=== PATIENT | male | born 1990 | race Caucasian/White ===

== ENCOUNTER 2018-06-05 17:34 | Emergency (ER) | payer BC, MEDICAID ==
[~2018-06-05] VITALS: Ht 170.2 cm; Wt 68.0 kg
[2018-06-05 17:37] VITALS: BP_SYST 148
[2018-06-05] MEDS ORDERED: AMOXICILLIN 500 MG CAPSULE PO ONE (20:30)
[2018-06-05] MEDS ORDERED: LEVOFLOXACIN 500 MG TABLET PO ONE (20:30)
[2018-06-05 21:05] VITALS: BP_SYST 136
== END 2018-06-05 21:05 | disposition home or self-care (01) ==
LOC: SED 17:34
DX: J18.8 Other pneumonia, unspecified organism (principal); J45.909 Unspecified asthma, uncomplicated; R03.0 Elevated blood-pressure reading, without diagnosis of hypertension; Z88.1 Allergy status to other antibiotic agents; Z88.8 Allergy status to other drugs, medicaments and biological substances
CPT/HCPCS: 71046-TC; 99283

== ENCOUNTER 2018-07-04 07:43 | Emergency (ER) | payer MEDICAID ==
[~2018-07-04] VITALS: Ht 170.2 cm; Wt 68.0 kg
[2018-07-04 07:43] VITALS: BP_SYST 132
--- NOTE | 2018-07-04 07:45 | NUR ---
BROUGHT BACK TO BED #7 AND TRIAGED. REPORT GIVEN TO KAY
--- NOTE | 2018-07-04 07:49 | NUR ---
PATIENT CAME IN COMPLAINING OF SOB AND COUGH. PATIENT HAS DRY COUGH WITH LITTLE YELLOW SPUTUM. PATIENT SAID HE'S HAD THIS SINCE THE 1ST. PATIENT HAS BEEN TAKING ANTIBIOTICS. PATIENT COMPLAINING OF 5/10 PAIN IN CHEST FROM COUGHING. PATIENT ALERT AND ORIENTED X4. PATIENT NOT COMPLAINING OF NASUEA OR VOMITING.
--- NOTE | 2018-07-04 07:50 | NUR ---
ER Dr. Simeon at bedside examining patient.
[2018-07-04] MEDS ORDERED: LEVALBUTEROL HCL 0.63 MG/3 ML VIAL.NEB INH ONE (08:00)
--- NOTE | 2018-07-04 08:20 | NUR ---
PATIENT HAD RELIEF FROM BREATHING TREATMENT. PATIENT NO LONGER COUGHING LIKE EARLIER AFTER BREATHING TREATMENT.
--- NOTE | 2018-07-04 08:51 | NUR ---
PATIENT BACK FROM CT IN STABLE CONDITION.
--- NOTE | 2018-07-04 09:42 | NUR ---
Patient given written and verbal discharge instructions and verbalizes understanding. ER MD discussed with patient the results and treatment provided. Patient in stable condition. ID arm band removed. Rx of HYCODAN AND MEDROL given. Patient educated on pain management and to follow up with PMD. Pain Scale 0/10. Opportunity for questions provided and answered. Medication side effect fact sheet provided.
[2018-07-04 09:45] VITALS: BP_SYST 132
== END 2018-07-04 09:42 | disposition home or self-care (01) ==
LOC: SED 07:43
DX: J06.9 Acute upper respiratory infection, unspecified (principal); J90 Pleural effusion, not elsewhere classified; J45.909 Unspecified asthma, uncomplicated; Z88.1 Allergy status to other antibiotic agents; Z88.8 Allergy status to other drugs, medicaments and biological substances
CPT/HCPCS: 71045; 71250-TC; 94640; 99284

== ENCOUNTER 2019-05-20 13:38 | Emergency (ER) | payer MEDICAID ==
[~2019-05-20] VITALS: Ht 170.2 cm; Wt 72.6 kg
[2019-05-20 13:40] VITALS: BP_SYST 132
[2019-05-20 15:48] LABS: BASOPHILS # (AUTO) 0.1 K/uL (0.0-0.2); BASOPHILS % (AUTO) 0.7 % (0.0-2.0); EOSINOPHILS # (AUTO) 0.7 K/uL (0.0-0.4); EOSINOPHILS % (AUTO) 6.2 % (0.0-4.0); HEMATOCRIT 43.6 % (36-54); HEMOGLOBIN 14.5 g/dL (14.0-18.0); LYMPHOCYTES # (AUTO) 1.5 K/uL (1.0-5.5); LYMPHOCYTES % (AUTO) 13.1 % (20.5-51.5); MEAN CORPUSCULAR HEMOGLOBIN 30 pg (27-31); MEAN CORPUSCULAR HGB CONC 33 % (32-36); MEAN CORPUSCULAR VOLUME 91 fL (79.0-98.0); MONOCYTES # (AUTO) 1.3 K/uL (0.0-1.0); MONOCYTES % (AUTO) 11.3 % (1.7-9.3); NEUTROPHILS # (AUTO) 7.9 K/uL (1.8-7.7); NEUTROPHILS % (AUTO) 68.7 % (40.0-70.0); PLATELET COUNT (AUTO) 287 K/uL (130-430); RED BLOOD CELL COUNT(AUTO) 4.79 MIL/uL (4.2-6.2); RED CELL DISTRIBUTION WIDTH 13.5 % (9.0-15.0); WHITE BLOOD COUNT (AUTO) 11.5 K/uL (4.8-10.8)
[2019-05-20 15:54] LABS: CALCIUM 9.1 mg/dL (8.4-11.0); CREATININE 0.96 mg/dL (0.55-1.30); POTASSIUM 3.8 mmol/L (3.5-5.1)
[2019-05-20 15:55] LABS: PROTHROMBIN TIME 10.2 SECS (9.5-12.5)
[2019-05-20 16:00] LABS: ALBUMIN 3.5 g/dL (3.4-4.8); TOTAL BILIRUBIN 1.6 mg/dL (0.0-1.0)
[2019-05-20 17:03] VITALS: BP_SYST 132
== END 2019-05-20 17:03 | disposition home or self-care (01) ==
LOC: SED 13:38
DX: R07.89 Other chest pain (principal); J90 Pleural effusion, not elsewhere classified; R74.0 Nonspecific elevation of levels of transaminase and lactic acid dehydrogenase [LDH]; J45.909 Unspecified asthma, uncomplicated; M19.90 Unspecified osteoarthritis, unspecified site; Z87.01 Personal history of pneumonia (recurrent); Z88.1 Allergy status to other antibiotic agents; Z88.6 Allergy status to analgesic agent; Z88.8 Allergy status to other drugs, medicaments and biological substances
CPT/HCPCS: 36415; 71045; 71250-TC; 80053; 85025; 85610-TC; 93005; 99285